=== PATIENT | female | born 1980 | race Caucasian/White ===

== ENCOUNTER 2024-11-04 10:26 | Outpatient (CLI) | payer OTHER, SELFPAY ==
--- NOTE | ~2024-11-04 | MM_ITS ---
EXAMINATION: MM screening kaveh BI w sami HISTORY: Screening TECHNIQUE: Craniocaudal and mediolateral oblique 3-D tomosynthesis images were obtained and synthetic 2-D images were generated. CAD analysis was submitted and interpreted. COMPARISON: No prior mammogram is available for comparison at this institution. BREAST PARENCHYMAL COMPOSITION: Dense: The breasts are extremely dense, which lowers the sensitivity of mammography. FINDINGS: There is no evidence of suspicious mass, calcification, or architectural distortion to sugg est malignancy in either breast. There has been no suspicious interval change. IMPRESSION: 1. No mammographic evidence of malignancy. 2. Recommend routine screening mammography in one year. BI-RADS Category 1: Negative Reviewed, dictated and finalized at location A.
--- OUTSIDE RECORDS SUMMARY | 2024-11-04 12:03 | XMS_ITS | Data Portability ---
Author Organization [facility] Giana Cee Address [address] [place] [address] Care Team Providers Care Attendance Secretary Name Role Phone LAYO SALLY Primary Care Provider Assessment No assessment recorded. Plan of Treatment Reminders Order Date Submit Date Provider Last Modified By Organization Details Last Modified Time Details Appointments None recorded. Lab urinalysis, dipstick 2022 023 [email or web address] In-Office Order, Internal Use Only DO Not Attach Compendium DO Not Attach Compendium, Do Not Delete/merge, [id number] 14:55:29 Referral None recorded. Procedures None recorded. Surgeries None recorded. Imaging None recorded. Medication Orders hydrocortis one 2.5 % topical cream 2022 023 ST[facility], [facility] [place][note 2] [place], [place], [id number], 14:52:31 Patient TargetsNo targets recorded. Patient Instructions Encounter Date Encounter Id Patient Instructions Last Modified By Organization Details Last Modified Time 06/05/2023 [id number] frequent urination: care instructions [email or web address] Not available 06/05/2023 14:55:29 Eczema: Care Instructions [email or web address] Not available 06/05/2023 14:51:36 Reason for Referral None Reported. Results Created Date Observation Date Name Description Value Unit Range Abnormal Flag Note LastModifiedBy Organization Detail LastModifiedTime 06/05/20 23 06/05/2023 urina lysis , dipst ick Leukocytes Negati ve Not Available In-Office Order Internal Use Only DO Not Attach Compendium DO Not Attach Compendium, Do Not Delete/merge, [id number] 06/05/2023 14:30:07 06/05/20 23 06/05/2023 urina lysis , dipst ick Nitrite negati ve Not Available In-Office Order Internal Use Only DO Not Attach Compendium DO Not Attach Compendium, Do Not Delete/merge, [id number] 06/05/2023 14:30:07 06/05/20 23 06/05/2023 urina lysis , dipst ick Urobilinogen .2 Not Available In-Of fice Order Internal Use Only DO Not Attach Compendium DO Not Attach Compendium, Do Not Delete/merge, [id number] 06/05/2023 14:30:07 06/05/20 23 06/05/2023 urina lysis , dipst ick Protein Negati ve Not Available In-Office Order Internal Use Only DO Not Attach Compendium DO Not Attach Compendium, Do Not Delete/merge, 06/05/2023 14:30:06/05/20 23 06/05/2023 urina lysis , dipst ick pH 6.0 Not Available In-Office Order Internal Use Only DO Not Attach Compendium DO Not Attach Compendium, Do Not Delete/merge, 06/05/2023 14:30:07 06/05/20 23 06/05/2023 urina lysis , dipst ick Blood Modera te Not Available In-Office Order Internal Use Only DO Not Attach Compendium DO Not Attach Compendium, Do Not Delete/merge, 06/05/2023 14:30:07 06/05/20 23 06/05/2023 urina lysis , dipst ick Specific [place] 1.010 Not Available In-Off ice Order Internal Use Only DO Not Attach Compendium DO Not Attach Compendium, Do Not Delete/merge, [id number] 06/05/2023 14:30:07 06/05/20 23 06/05/2023 urina lysis , dipst ick Ketone Negati ve Not Available In-Office Order Internal Use Only DO Not Attach Compendium DO Not Attach Compendium, Do Not Delete/merge, 06/05/2023 14:30:07 06/05/20 23 06/05/2023 urina lysis , dipst ick Bilirubin Negati ve Not Available In-Office Order Internal Use Only DO Not Attach Compendium DO Not Attach Compendium, Do Not Delete/merge, [id number] 06/05/2023 14:30:07 06/05/20 23 06/05/2023 urina lysis , dipst ick Glucose Negati ve Not Available In-Office Order Internal Use Only DO Not Attach Compendium DO Not Attach Compendium, Do Not Delete/merge, [id number] 06/05/2023 14:30:07 06/05/20 23 06/05/2023 urina lysis , dipst ick Appearance Clear Not Available In-Offi ce Order Internal Use Only DO Not Attach Compendium DO Not Attach Compendium, Do Not Delete/merge, [id number] 06/05/2023 14:30:07 06/05/20 23 06/05/2023 urina lysis , dipst ick Color Yellow Not Available In-Office Order Internal Use Only DO Not Attach Compendium DO Not Attach Compendium, Do Not Delete/merge, [id number] 06/05/2023 14:30:07 11/05/19 25 11/04/2024 imagi ng/di agnos tic resul t No observ ation record ed. [facility] [address] [place], [address], 11/04/2024 12:43:37 Result Notes None recorded. Procedures Surgical History Date Name Laterality Status Provider Name and Address Organization Details Recorded Time 07/29/19 18 Total hysterectomy completed Amalia Fuller MA [facility] 06/05/2023 14:26:19 07/29/19 16 Dilation and Curettage completed Amalia Fuller MA [facility] 06/05/2023 14:26:48 Imaging Results Imaging Date Name Status LastModified by Organiz ation Details LastModified Time 11/04/2024 imaging/diagn ostic result active [facility] [address] [place], [address], 11/04/2024 12:43:37 Procedure Notes None recorded. Medical Equipment None Reported. Allergies No known drug allergies Medications Name Sig Start Date Stop Date Status Note LastModified by Organization Details LastModified Time hydrocortis one 2.5 % topical cream APPLY A THIN LAYER TO THE AFFECTED AREA(S) BY TOPICAL ROUTE 2 TIMES PER DAY active Not Available Not Available No t Available nitrofurant oin monohydrate /macrocryst als 100 mg capsule 12/19 completed Not Available Not Available Not Available Sahra 0.1 mg/24 hr transdermal patch APPLY 1 PATCH TOPICALLY TO THE SKIN 2 TIMES A WEEK active Not Available Not Available No t Available Vitals Date Recorded Body weight Body mass index (BMI) Body height Oxygen saturation Oxygen saturation in Arterial blood by Pulse oximetry Heart rate Systolic blood pressure Diastolic blood pressure Provider Name and Address Organization Details Last Updated DateTime 3 88607.3 1 g 20.7 kg/m2 160.02 cm 96 % 96 % 59 /min 105 mm[Hg] 66 mm[Hg] Amalia Fuller MA [facility] 3 14:23:08 Date Recorded Body height Body mass index (BMI) Body weight Heart rate Oxygen saturation Oxygen saturation in Arterial blood by Pulse oximetry Systolic blood pressure Diastolic blood pressure Provider Name and Address Organization Details Last Updated DateTime 4 160.02 cm 20.6 kg/m2 85293.5 1 g 53 /min 100 % 100 % 102 mm[Hg] 70 mm[Hg] Sheeba Mullen MA [facility] 4 10:56:20 Social History Question Answer Notes LastModified by Organizat ion Details LastModified Time Tobacco Smoking Status Former Smoker Amalia Fuller MA null, [facility] 06/05/2023 14:25:19 What Is Your Level Of Alcohol Consumption? Occasional Information not available 06/05/2023 What Is Your Level Of Caffeine Consumption? Moderate Information not available 06/05/2023 Are You Currently Employed? Yes Information not available 06/05/2023 What Type Of Diet Are You Following? REGULAR High Protein Information not available 06/05/2023 What Is Your Occupation? [employer] Information not available 06/05/2023 What Was The Date Of Your Most Recent Tobacco Screening? 06/05/2023 Information not available 06/05/2023 What Is Your Relationship Status? Information not available 06/05/2023 Do You Use Your Seat Belt Or Car Seat Routinely? Yes [email or web address] Information not available 12/20/2023 Do You Have Smoke And Carbon Monoxide Detectors In Your Home? Yes Information not available 06/05/2023 Are You Passively Exposed To Smoke? Yes Information not available 06/05/2023 Do You Feel Stressed (tense, Restless, Nervous, Or Anxious, Or Unable To Sleep At Night)? [id number] Information not available 06/05/2023 Do You Use Any Illicit Or Recreational Drugs? Yes Marjuana Information not available 06/05/2023 Has Tobacco Cessation Counseling Been Provided? No Information not available 06/05/2023 Do You Or Have You Ever Used Any Other Forms Of Tobacco Or Nicotine? No Information not available 06/05/2023 Sex: Unknown Functional Status None recorded. Mental Status None recorded. Family History Relationship Description Onset Age of this Age Resolved Age Notes LastModified by Organization Details LastModified Time Father No current problems or disability [email or web address] Not available 06/05 14:24:30 Mother No current problems or disability [email or web address] Not available 06/05 14:24:30 Medical History Condition Response Coronary Artery Disease N Other Y High Blood Pressure N Atrial Fibrillation N Thyroid Problems N Kidney or Bladder Problems N GI Problems N Depression N COPD N Blood Clots N Skin Problems N Eating Disorder N Anemia N Heart Attack ([place]) N Anxiety Disorder N Diabetes N Muscle, Joint, or Bone Problems N Seizures/Epilepsy N Acid Reflux (GERD) N Cancer N Stroke N Asthma N Allergies N ADHD N Substance Abuse N High Cholesterol N Hepatitis N Liver Disease N Schizophrenia N Headaches N Heart Failure N Osteoporosis N Gynecological History Statement/Question Response Date of LMP Obstetrics History GPAL:G 0 P 0 0 0 0 Immunizations Vaccine Type Date Status Note Provider Nam e and Address Organization Details Recorded Time COVID-19 vaccine, vector-nr, rS-Ad26, PF, 0.5 mL 04/04/2021 completed Amalia Fuller MA null, [place] - [facility] 11/13/2023 09:01:09 Past Encounters Encounter ID Performer Location Encounter Start Date Encounter Closed Date Diagnosis/Indication Diagnosis SNOMED-CT Code Diagnosis ICD10 Code Diagnosis Note [id number] Sally Antonio PA-C [place] [address] [place] [address] 06/05/2023 14:07:27 06/10/2023 16:53:31 Increased frequency of urination 690069856 R35.0 Body mass index 20-24 - normal 195572600 Z68.20 Atopic dermatitis 649245 01 L20.9 [id number] Sally Antonio PA-C [place] [address] [place] [address] 12/20/2023 10:31:29 12/24/2023 13:57:36 Pain of right wrist 3651117390 08666 M25.531 avoid direct irritating activity get otc nsaid Health Concerns Section Related Observation LastModified by Organization Detai ls LastModified Time None Recorded Concern Status LastModified by Organization Details LastModified Time None Recorded Advance Directives Directive None Recorded Payers Encounter Date Sequence Insurance Name Policy Number Policy Pabon Covered Member ID Pabon Member ID Guarantor Name 06/05/2023 1 [facility] [id number] [facility] [id number] [facility] 12/20/2023 1 [facility] [id number] [facility] [id number] [facility] Notes Date Note Type Note Provider Name and Address Organization Details Recorded Time 06/05/2023 text/html getting established...was poos...no ongoing complaints...urine feels off a little..hx of hysterectomy at 37...says damage occurred to bladder due to this procedure...also itching on arms and shoulderswas told at one time it was neuro not derm Sally Antonio PA-C Attn: [address] [place], [address], [facility] 06/05/2023 14:55:20 12/20/2023 text/html painful rt wrist espcially along thumb...no known injury...plays pickle ball...started then... Sally Antonio PA-C Attn: [address] [place], [address], [facility] 12/20/2023 11:22:58 OBGyn Episode No OBEpisode recorded.
--- OUTSIDE RECORDS SUMMARY | 2024-11-04 12:03 | XMS_ITS | Clinical Summary ---
Author Organization [facility] Address [address] [place] [address] Care Team Providers Care Sales Utility Representative Name Role Phone Juni Alfaro MD Primary Care Provider [phone] Source Comments [facility],non-owned Affiliates and Associated Physician Practices is amultiple site organization consisting of ambulatory clinics and hospital sitesin [place], [place], [place] and [place]. This disclosure is being madepursuant to the Care Everywhere program and may not contain all information available regarding this patient. Last updated 18.[facility] Medications * Be aware that medications may not be up to date on this document. Alwaysverify current medications with the patient. Medication Sig Dispensed Refills Start Date End Date Status LORazepam (ATIVAN) 0.5 MG tablet Take 0.5 mg by mouth q4h PRN. 05/28/2017 Active Active Problems Problem Noted Date Diagnosed Date Cyst of right ovary 08/27/2017 Cyst of left ovary 08/27/2017 Endometriosis 08/23/2017 Ovarian dysfunction 05/12/2015 Dysmenorrhea 02/02/2014 Family History Medical History Relation Name Comments Diabetes Maternal Grandfather Cancer - Breast Maternal Grandmother Endometriosis Mother Cancer - Colon Paternal Grandfather Diabetes Paternal Grandfather Heart Disease Paternal Grandfather Relation Name Status Comments Maternal Grandfather Maternal Grandmother Mother Paternal Grandfather Social History Tobacco Use Types Packs/Day Years Used Date Smoking Tobacco: Never Smokeless Tobacco: Never Alcohol Use Standard Drinks/Week Comments Yes 4.2 (1 standard drink = 0.6 oz p ure alcohol) Sex and Gender Information Value Date Recorded Sex Assigned at Not on file Gender Identity Not on file Sexual Orientation Not on file Last Filed Vital Signs Vital Sign Reading Time Taken Comments Blood Pressure 110/80 08/27/2017 10:13 AM [employer] Pulse - - Temperature - - Respiratory Rate - - Oxygen Saturation - - Inhaled Oxygen Concentration - - Weight 49.9 kg (110 lb) 08/27/2017 10:13 AM [employer] Height 160 cm (5' 3 ) 08/27/2017 10:13 AM [employer] Body Mass Index 19.49 08/27/2017 10:13 AM [employer] Plan of Treatment Health Maintenance Due Date Last Done Comments LIPID TESTING 1982 MAMMOGRAM 1982 PAP SMEAR 1982 HIV SCREENING 1997 HEPATITIS C SCREENING 06/30/2000 DTAP/TDAP/TD VACCINES (1 - Tdap) 2001 HEPATITIS B VACCINE (1 of 3 - 19+ 3-dose series) 2001 COVID-19 VACCINE ( - 2023-2 5 season) 2024 DEPRESSION SCREENING 07/29/2024 INFLUENZA VACCINE (Season Ended) 2025 ZOSTER VACCINE (1 of 2) 2032 HIB VACCINE Aged Out No longer eligi ble based on patient's age to complete this topic HPV VACCINE Aged Out No longer eligi ble based on patient's age to complete this topic MENINGOCOCCAL (Group B) VACC INE SHARED DECISION-MAKING Aged Out No longer eligibl e based on patient's age to complete this topic MENINGOCOCCAL GROUPS A/C/Y/W VACCINE Aged Out No longer eligible b ased on patient's age to complete this topic PNEUMOCOCCAL VACCINE Aged Out No long er eligible based on patient's age to complete this topic Care Teams Sales Utility Representative Relationship Specialty Start Date End Date Juni Alfaro MD [address] [place] [id number] PCP - General 08/23/17
== END 2024-11-04 10:27 | disposition home or self-care (01) ==
PROVIDERS: PCP Physician Assistant; Visit Provider Obstetrics & Gynecology
DX: Z12.31 Encounter for screening mammogram for malignant neoplasm of breast (principal)
CPT/HCPCS: 77063; 77067